=== PATIENT | male | born 1955 | race Caucasian/White ===

== ENCOUNTER → 2025-02-13 15:04 | Outpatient (BNVA) | payer MEDICARE, SELFPAY | PROVIDERS: Family Provider Physician Assistant Medical; Visit Provider Orthopaedic Surgery | DX: M75.42 Impingement syndrome of left shoulder (principal) | CPT/HCPCS: 20610; 99204; J3301; J3490; J9999 ==

== ENCOUNTER 2025-03-07 10:00 | Outpatient (RCR) | payer MEDICARE, SELFPAY | END 2025-03-11 23:55 | disposition home or self-care (01) | LOC: SPT 10:00 | PROVIDERS: Visit Provider Orthopaedic Surgery | DX: M25.512 Pain in left shoulder (principal) | CPT/HCPCS: 97161 ==

== ENCOUNTER 2025-03-12 06:30 | Outpatient (RCR) | payer MEDICARE, SELFPAY | END 2025-04-10 23:59 | disposition home or self-care (01) | LOC: SPT 06:30 | PROVIDERS: Visit Provider Orthopaedic Surgery | DX: M25.512 Pain in left shoulder (principal) | CPT/HCPCS: 97110 ==